=== PATIENT | male | born 1995 | race Caucasian/White ===

== ENCOUNTER 2019-03-21 11:28 | Emergency (ER) | payer SELFPAY ==
[2019-03-21 12:17] VITALS: BP 155/83; PULSE 62; RESP 18; TEMP 36.7; O2SAT 100
--- NOTE | 2019-03-21 12:35 | ED.GENADULT ---
HPI - General Adult General Chief complaint: Dental/Oral Stated complaint: Toothache Source: patient and RN notes reviewed Mode of arrival: ambulatory Limitations: no limitations History of Present Illness HPI narrative: This patient has an infected right upper posterior molar. He went to see his dentist 3 days ago when his discomfort began and they diagnosed him as having this in 12 May need to have the tooth extracted. He is waiting for his appointment to have it extracted. They did give him 800 mg ibuprofen to use 1 3 times daily for the pain. He has used it does not relieve the pain. Last night he had an abscess form on the gum tissue around that tooth that opened and drained. The gum tissue is been reddened but not draining since. He has had no other teeth that have been painful. This tooth is sensitive to heat and cold. He does not have any clicking, locking, or popping of his jaw joints. He has not had any fever. Is not had any swelling of his jaw. He has not had any nasal drainage or ear pain or sore throat or cough. He has had no rashes. He has been told he needs to have the tooth extracted. Related Data Allergies Allergy/AdvReac Type Severity Reaction Status Date / Time No Known Allergies Allergy Verified 03/21/19 12:38 Review of Systems Review of Systems: Narrative: CONSTITUTIONAL: Denies fever, chills, or sweats. Noncontributory except as pertains the past medical history and history of present illness. EYES: Denies visual changes, redness, or discharge. ENT: Denies rhinorrhea, congestion, sore throat, or otalgia. CARDIOVASCULAR: Denies chest pain, palpitations, or edema. RESPIRATORY: Denies cough or dyspnea. GASTROINTESTINAL: Denies abdominal pain, nausea, vomiting, or diarrhea. GENITOURINARY: Denies dysuria or hematuria. SKIN: Denies rash or itching. MUSCULOSKELETAL: Denies back pain, joint pain, or myalgia. NEUROLOGIC: Denies headache, numbness, or weakness. PSYCHIATRIC: Denies anxiety or depression. PMFSH Comments At time of signature, I have reviewed and agree with nursing past medical, surgical, social, and family history.Please see nursing chart for further information. There is no relevant family history pertinent to the presenting complaint. Exam Narrative: Exam Narrative: GENERAL: Well-appearing, well-nourished, and in no acute distress. HEAD: Normocephalic, atraumatic. EYES: PERRLA and EOMI. EARS: TM's clear bilaterally and the canals are clear. NOSE: Nares clear, no rhinorrhea or epistaxis. THROAT:Mucous membranes moist.Oropharynx normal without erythema or exudates. There are no TMJ clicks bilaterally. He has full excursion of the TMJs without any clicking, locking, or popping. The patient has a sensitive to percussion tooth on the right upper posterior molar and the gum tissue surrounding that tooth is erythematous and swollen but not draining material. The other dentition is in fair repair. He has a carry of the right posterior lower molar but is not tender to percussion. There are no lesions in the floor the mouth. The uvula and pharynx otherwise appear normal as does the tongue. NECK: Supple. No adenopathy of the neck, supraclavicular, axillary, or inguinal areas RESPIRATORY: No respiratory distress. Airway patent. Respirations non-labored. Clear to auscultation. There are no wheezes, no rales, no retractions, no use accessory muscle respirations. Patient's not cyanotic and not dyspneic. Pulse ox on room air is 100% and current temperature is 36.7. HEART: Regular rate and rhythm. No murmur heard. Normal peripheral pulses. ABDOMEN: Soft, nontender, nondistended, normal active bowel sounds.No masses. No rebound or guarding, No organomegaly. No CVA pain. No pain McBurney's point. The patient is a negative Lewis sign and negative Rovsing sign. There are no pulsatile masses and no audible bruits. EXTREMITIES: No clubbing/cyanosis/ edema. Normal strength & range of motion. SKIN: Warm, dry.No
== END 2019-03-21 13:00 | disposition home or self-care (01) ==
PROVIDERS: Emergency Provider Family Medicine
DX: K08.89 Other specified disorders of teeth and supporting structures (principal)
CPT/HCPCS: 99203; G0463

== ENCOUNTER 2022-04-28 16:30 | Emergency (ER) | payer BC, SELFPAY ==
[2022-04-28 16:37] VITALS: BP 149/84; PULSE 90; RESP 16; TEMP 37; O2SAT 97
--- NOTE | 2022-04-28 16:47 | ED.MALEGU ---
HPI - Male Genitourinary General Chief complaint: Urogenital-Male Stated complaint: Scrotom Pain Time Seen by Provider: 04/28/22 16:47 History of Present Illness HPI Narrative: Patient presents with intermittent and scrotal discomfort. Patient denies any lifting of heavy objects denies any penile discharge no open lesions, no concern for STIs. Patient states he has had a urinary tract infection in the past and is wondering if he has 1 at present. Patient states the pain comes and goes. Patient denies any pain or discomfort at this time. Patient states the pain is mild when it comes and goes. Patient has not taken anything [id number] for his symptoms. Patient denies any swelling of the scrotum and no tenderness to the area. Related Data Allergies Allergy/AdvReac Type Severity Reaction Status Date / Time No Known Allergies Allergy Verified 03/21/19 12:38 Review of Systems Review of Systems: CONSTITUTIONAL: Denies fever, chills, or sweats. EYES: Denies visual changes, redness, or discharge. ENT: Denies rhinorrhea, congestion, sore throat, or otalgia. CARDIOVASCULAR: Denies chest pain, palpitations, or edema. RESPIRATORY: Denies cough or dyspnea. GASTROINTESTINAL: Denies abdominal pain, nausea, vomiting, or diarrhea. GENITOURINARY: Denies dysuria or hematuria. SKIN: Denies rash or itching. MUSCULOSKELETAL: Denies back pain, joint pain, or myalgia. NEUROLOGIC: Denies headache, numbness, or weakness. PSYCHIATRIC: Denies anxiety or depression. PMFSH Comments At time of signature, agree with nursing past medical, surgical, social and family history. There is no relevant family history pertinent to the presenting complaint Exam Narrative: GENERAL: Well-appearing, well-nourished, and in no acute distress. HEAD: Normocephalic, atraumatic. EYES: PERRLA and EOMI. ENT: Nares clear, no rhinorrhea or epistaxis. Mucous membranes moist. NECK: Supple. CHEST: Clear to auscultation. No respiratory distress. HEART: Regular rate and rhythm. No murmur heard. Normal peripheral pulses. ABDOMEN: Soft, nontender, nondistended, normal active bowel sounds. EXTREMITIES: Normal range of motion. No edema. SKIN: Warm, dry, no rash. NEURO: No focal deficits. Alert and oriented x3. [place] Coma Scale Eye Opening: Spontaneous 4 [place] Coma Scale Motor: Obeys Commands 6 [place] Coma Scale Verbal: Oriented 5 Heather Coma Scale Total 15 : Male General Exam: Yes normal external exam Penis: Yes normal penis Scrotum: scrotum normal Testes: Testes normal Course Course Level of Care: Express Care Visit Vital Signs Vital signs: Vital Signs Temperature 37.0 C 04/28/22 16:37 Pulse Rate 90 04/28/22 16:37 Respiratory Rate 16 04/28/22 16:37 Blood Pressure 149/84 H 04/28/22 16:37 Pulse Oximetry 97 04/28/22 16:37 Oxygen Delivery Room Air 04/28/22 16:37 Temperature 37.0 C 04/28/22 16:37 Pulse Rate 90 04/28/22 16:37 Respiratory Rate 16 04/28/22 16:37 Blood Pressure 149/84 H 04/28/22 16:37 Pulse Oximetry 97 04/28/22 16:37 Oxygen Delivery Room Air 04/28/22 16:37 discussed with patient transfer to the Discharge Plan Discharge Clinical Impression: Scrotum pain Patient Disposition: Home, Self-Care Condition: Stable Instructions: Scrotal Pain (ED) Additional Instructions: Follow-up with primary care provider as we discussed Discussed signs and symptoms to monitor for Will culture the urine and if the culture grows out any bacteria we will call placed to an antibiotic at that time Discussed red flags and when to go to ER Follow-up/Referrals: PHYSICIAN NOT ON STAFF,NONSTAFF [Primary Care Provider] -
== END 2022-04-28 17:02 | disposition home or self-care (01) ==
PROVIDERS: Emergency Provider Nurse Practitioner Family
DX: N50.82 Scrotal pain (principal)
CPT/HCPCS: 81003; 87086; 99203; G0463